=== PATIENT | female | born 1940 | race Two or more races ===

== ENCOUNTER 2017-09-22 21:16 | Inpatient (IN) | payer OTHER ==
[~2017-09-22] VITALS: Ht 165.1 cm; Wt 140.0 kg
[~2017-09-22 21:16] MED LIST: COMBIGAN EYE DRO5 ML; CRESTOR10 MG; HUMULIN R500 U/ML; LANTUS SOLOSTAR3 ML; METOPROLOL SUCC25 MG; SYNTHROID50 MCG; TIROSINT25 MCG; TRAVATAN Z5 ML; [UNRECOGNIZED DRUG - OTHER]
[2017-09-22] MEDS ORDERED: DIGOXIN0.125 MG/2 (21:31)
[2017-09-22] MEDS ORDERED: PLAVIX75 MG (21:31)
[2017-09-22] MEDS ORDERED: ECOTRIN81 MG (21:31)
[2017-09-22] MEDS ORDERED: HUMALOG100 UNIT/1 (21:32)
[2017-09-22] MEDS ORDERED: MONTELUKAST SOD10 MG (21:32)
[2017-09-22] MEDS ORDERED: BUDEO.25 (21:32)
[2017-09-22] MEDS ORDERED: NITROGLYCERIN1 EAC1 (21:32)
[2017-09-22] MEDS ORDERED: TRADJENTA5 MG (21:33)
[2017-09-22] MEDS ORDERED: IPRATROPIU0.2 MG/1 M (21:33)
[2017-09-22] MEDS ORDERED: NEURONTIN300 MG (21:33)
[2017-09-22] MEDS ORDERED: LEVAQUIN750 MG (21:33)
[2017-09-22] MEDS ORDERED: TESSALON PERLE100 M1 (21:33)
[2017-09-22] MEDS ORDERED: LANTUS SOL100 UNIT/1 (21:34)
[2017-10-05] MEDS ORDERED: AMLODIPINE BESY10 MG PO (14:37)
[2017-10-05] MEDS ORDERED: LEVOTHYROXINE50 MCG PO (14:37)
[2017-10-05] MEDS ORDERED: LOSARTAN POTASS50 MG PO (14:37)
[2017-10-05] MEDS ORDERED: ASA-EC81 MG PO (14:37)
[2017-10-05] MEDS ORDERED: ACID REDUCER20 MG PO (14:37)
[2017-10-05] MEDS ORDERED: CLOPIDOGREL BIS75 MG PO (14:37)
[2017-10-05] MEDS ORDERED: XOPENEX0.63 MG/3 IH (14:37)
[2017-10-05] MEDS ORDERED: Coreg 12.5MG TABLET PO (14:37)
[2017-10-05] MEDS ORDERED: MONTELUKAST SOD10 MG PO (14:37)
[2017-10-05] MEDS ORDERED: LANOXIN125 MCG PO (14:37)
[2017-10-05] MEDS ORDERED: LIPITOR40 MG PO (14:37)
[2017-10-05] MEDS ORDERED: TESSALON PERLE100 M1 PO (15:27)
[2017-10-05] MEDS ORDERED: TUSSIN DM CLEA118 ML PO (15:27)
== END 2017-10-05 17:17 | disposition home or self-care (01) | DRG 291 ==
LOC: ER 21:16 → MEDJ 09-23 18:06 → SURH 09-23 18:06 → MEDI 09-23 19:31 → SURH 10-05 17:17
PROC: 3E0F7GC Introduction of Other Therapeutic Substance into Respiratory Tract, Via Natural or Artificial Opening (ICD-10-PCS; 2017-09-23)
PROC: B44HZZZ Ultrasonography of Bilateral Lower Extremity Arteries (ICD-10-PCS; principal; 2017-09-24)
PROC: 02H633Z Insertion of Infusion Device into Right Atrium, Percutaneous Approach (ICD-10-PCS; 2017-09-27)
PROC: 4A033R1 Measurement of Arterial Saturation, Peripheral, Percutaneous Approach (ICD-10-PCS; 2017-09-27)
PROC: 4A12X4Z Monitoring of Cardiac Electrical Activity, External Approach (ICD-10-PCS; 2017-09-27)
PROC: B246ZZZ Ultrasonography of Right and Left Heart (ICD-10-PCS; 2017-10-03)
DX: I11.0 Hypertensive heart disease with heart failure (principal); J18.9 Pneumonia, unspecified organism; B37.41 Candidal cystitis and urethritis; E87.1 Hypo-osmolality and hyponatremia; N17.8 Other acute kidney failure; J44.1 Chronic obstructive pulmonary disease with (acute) exacerbation; L97.528 Non-pressure chronic ulcer of other part of left foot with other specified severity; L97.518 Non-pressure chronic ulcer of other part of right foot with other specified severity; B37.0 Candidal stomatitis; I50.33 Acute on chronic diastolic (congestive) heart failure; E11.65 Type 2 diabetes mellitus with hyperglycemia; E86.0 Dehydration; I25.10 Atherosclerotic heart disease of native coronary artery without angina pectoris; I70.245 Atherosclerosis of native arteries of left leg with ulceration of other part of foot; I70.235 Atherosclerosis of native arteries of right leg with ulceration of other part of foot; B35.3 Tinea pedis; E03.8 Other specified hypothyroidism; Z95.1 Presence of aortocoronary bypass graft; Z95.2 Presence of prosthetic heart valve; I27.29 Other secondary pulmonary hypertension; B37.2 Candidiasis of skin and nail

== ENCOUNTER 2017-10-13 09:55 | Inpatient (IN) | payer OTHER ==
[~2017-10-13] VITALS: Ht 160 cm; Wt 64.4 kg
[~2017-10-13 09:55] MED LIST changes: +ACID REDUCER20 MG PO; +AMLODIPINE BESY10 MG PO; +ASA-EC81 MG PO; +BUDEO.25; +CLOPIDOGREL BIS75 MG PO; +Coreg 12.5MG TABLET PO; +DIGOXIN0.125 MG/2; +ECOTRIN81 MG; +HUMALOG100 UNIT/1; +IPRATROPIU0.2 MG/1 M; +LANOXIN125 MCG PO; +LANTUS SOL100 UNIT/1; +LEVAQUIN750 MG; +LEVOTHYROXINE50 MCG PO; +LIPITOR40 MG PO; +LOSARTAN POTASS50 MG PO; +MONTELUKAST SOD10 MG; +MONTELUKAST SOD10 MG PO; +NEURONTIN300 MG; +NITROGLYCERIN1 EAC1; +PLAVIX75 MG; +TESSALON PERLE100 M1; +TESSALON PERLE100 M1 PO; +TRADJENTA5 MG; +TUSSIN DM CLEA118 ML PO; +XOPENEX0.63 MG/3 IH
[2017-10-13] MEDS ORDERED: COREG CR10 MG (11:17)
[2017-10-20] MEDS ORDERED: TOPROL XL50 M1 PO (15:43)
[2017-10-20] MEDS ORDERED: LOSARTAN POTASS50 MG PO (15:43)
[2017-10-20] MEDS ORDERED: CLOPIDOGREL BIS75 MG PO (15:43)
[2017-10-20] MEDS ORDERED: LEVOTHYROXINE50 MCG PO (15:43)
[2017-10-20] MEDS ORDERED: XOPENEX0.63 MG/3 IH (15:43)
[2017-10-20] MEDS ORDERED: LIPITOR40 MG PO (15:43)
[2017-10-20] MEDS ORDERED: LANOXIN125 MCG PO (15:43)
== END 2017-10-20 18:15 | disposition home health service (06) | DRG 194 ==
LOC: ER 09:55 → MEDI 19:12
PROC: 3E0F7GC Introduction of Other Therapeutic Substance into Respiratory Tract, Via Natural or Artificial Opening (ICD-10-PCS; principal; 2017-10-13)
PROC: 4A033R1 Measurement of Arterial Saturation, Peripheral, Percutaneous Approach (ICD-10-PCS; 2017-10-13)
PROC: BW24ZZZ Computerized Tomography (CT Scan) of Chest and Abdomen (ICD-10-PCS; 2017-10-13)
PROC: CB121ZZ Planar Nuclear Medicine Imaging of Lungs and Bronchi using Technetium 99m (Tc-99m) (ICD-10-PCS; 2017-10-14)
DX: J18.8 Other pneumonia, unspecified organism (principal); N17.8 Other acute kidney failure; I50.30 Unspecified diastolic (congestive) heart failure; J44.1 Chronic obstructive pulmonary disease with (acute) exacerbation; J44.0 Chronic obstructive pulmonary disease with (acute) lower respiratory infection; I25.810 Atherosclerosis of coronary artery bypass graft(s) without angina pectoris; B37.0 Candidal stomatitis; I27.29 Other secondary pulmonary hypertension; R13.19 Other dysphagia; I11.0 Hypertensive heart disease with heart failure; Z95.2 Presence of prosthetic heart valve; J20.9 Acute bronchitis, unspecified; E03.8 Other specified hypothyroidism; Z95.1 Presence of aortocoronary bypass graft; E86.0 Dehydration; E11.65 Type 2 diabetes mellitus with hyperglycemia; Z79.4 Long term (current) use of insulin; B96.3 Hemophilus influenzae [H. influenzae] as the cause of diseases classified elsewhere

== ENCOUNTER 2019-09-28 14:56 | Inpatient (IN) | payer OTHER ==
[~2019-09-28] VITALS: Ht 162.6 cm; Wt 68.0 kg
[~2019-09-28 14:56] MED LIST changes: +COREG CR10 MG; +TOPROL XL50 M1 PO
[2019-09-28] MEDS ORDERED: LASIX20 MG (15:09)
[2019-09-28] MEDS ORDERED: PLAVIX75 MG (15:09)
[2019-09-28] MEDS ORDERED: ASPIR 8181 MG (15:09)
[2019-09-28] MEDS ORDERED: SYNTHROID50 MCG (15:10)
[2019-09-28] MEDS ORDERED: VITAMIN D31 ML (15:10)
[2019-09-28] MEDS ORDERED: ISOSORBIDE DINI30 MG (15:10)
[2019-09-28] MEDS ORDERED: BUDESONIDE0.5 MG/2 M (15:11)
[2019-09-28] MEDS ORDERED: MONTELUKAST SODI4 M1 PO (15:11)
[2019-09-28] MEDS ORDERED: GABAPENTIN300 M2 (15:11)
[2019-09-28] MEDS ORDERED: LIPITOR40 M1 (15:11)
[2019-09-28] MEDS ORDERED: AZITHROMYCIN250 MG (15:12)
[2019-09-28] MEDS ORDERED: HUMALOG100 UNIT/2 (15:12)
[2019-09-28] MEDS ORDERED: IPRATROPIU0.2 MG/1 M (15:12)
[2019-09-28] MEDS ORDERED: DERMACINRX THE135 GM (15:13)
[2019-09-28] MEDS ORDERED: LANTUS SOL100 UNIT/1 (15:13)
[2019-10-07] MEDS ORDERED: VENTOLIN HFA18 GM IH (14:10)
[2019-10-07] MEDS ORDERED: LISINOPRIL20 MG PO (14:10)
[2019-10-07] MEDS ORDERED: FLONASE16 GM NASAL (14:10)
[2019-10-07] MEDS ORDERED: LEVOTHYROXINE50 MCG PO (14:10)
[2019-10-07] MEDS ORDERED: FUROSEMIDE20 MG PO (14:10)
[2019-10-07] MEDS ORDERED: Lantus 1000 UNITS/10 SUBCUTANEO (14:10)
[2019-10-07] MEDS ORDERED: MUCINEX600 MG PO (14:10)
[2019-10-07] MEDS ORDERED: LIPITOR40 MG PO (14:10)
[2019-10-07] MEDS ORDERED: FAMOTIDINE20 MG PO (14:10)
[2019-10-07] MEDS ORDERED: CLOPIDOGREL BIS75 MG PO (14:10)
[2019-10-07] MEDS ORDERED: LORATADINE10 MG PO (14:10)
[2019-10-07] MEDS ORDERED: ISOSORBIDE DINI30 MG PO (14:10)
[2019-10-07] MEDS ORDERED: BENZONATATE100 MG PO (14:10)
== END 2019-10-07 17:15 | DRG 177 ==
LOC: ER 14:56 → SURH 22:36
PROVIDERS: ADMIT Internal Medicine
PROC: 4A033R1 Measurement of Arterial Saturation, Peripheral, Percutaneous Approach (ICD-10-PCS; principal; 2019-09-28)
PROC: 3E0F7GC Introduction of Other Therapeutic Substance into Respiratory Tract, Via Natural or Artificial Opening (ICD-10-PCS; 2019-09-28)
PROC: 8E0ZXY6 Isolation (ICD-10-PCS; 2019-09-28)
PROC: B246ZZZ Ultrasonography of Right and Left Heart (ICD-10-PCS; 2019-10-01)
DX: B37.1 Pulmonary candidiasis (principal); A41.1 Sepsis due to other specified staphylococcus; I50.21 Acute systolic (congestive) heart failure; J10.08 Influenza due to other identified influenza virus with other specified pneumonia; J44.1 Chronic obstructive pulmonary disease with (acute) exacerbation; N39.0 Urinary tract infection, site not specified; I25.810 Atherosclerosis of coronary artery bypass graft(s) without angina pectoris; J45.41 Moderate persistent asthma with (acute) exacerbation; J20.9 Acute bronchitis, unspecified; I11.0 Hypertensive heart disease with heart failure; I08.2 Rheumatic disorders of both aortic and tricuspid valves; B96.29 Other Escherichia coli [E. coli] as the cause of diseases classified elsewhere; B95.2 Enterococcus as the cause of diseases classified elsewhere; I70.79 Other atherosclerosis of other type of bypass graft(s) of the extremities; R31.29 Other microscopic hematuria; E03.8 Other specified hypothyroidism; Z74.01 Bed confinement status

== ENCOUNTER 2020-03-09 16:15 | Inpatient (IN) | payer OTHER ==
[~2020-03-09] VITALS: Ht 165.1 cm; Wt 63.5 kg
[~2020-03-09 16:15] MED LIST changes: +ASPIR 8181 MG; +AZITHROMYCIN250 MG; +BENZONATATE100 MG PO; +BUDESONIDE0.5 MG/2 M; +DERMACINRX THE135 GM; +FAMOTIDINE20 MG PO; +FLONASE16 GM NASAL; +FUROSEMIDE20 MG PO; +GABAPENTIN300 M2; +HUMALOG100 UNIT/2; +ISOSORBIDE DINI30 MG; +ISOSORBIDE DINI30 MG PO; +LASIX20 MG; +LIPITOR40 M1; +LISINOPRIL20 MG PO; +LORATADINE10 MG PO; +Lantus 1000 UNITS/10 SUBCUTANEO; +MONTELUKAST SODI4 M1 PO; +MUCINEX600 MG PO; +VENTOLIN HFA18 GM IH; +VITAMIN D31 ML
[2020-03-09] MEDS ORDERED: ASPIR 8181 MG PO (17:19)
[2020-03-09] MEDS ORDERED: PLAVIX75 MG PO (17:19)
[2020-03-09] MEDS ORDERED: COD LIVER OIL1 EACH PO (17:20)
[2020-03-09] MEDS ORDERED: ATORVASTATIN CA40 MG PO (17:20)
[2020-03-09] MEDS ORDERED: ISOSORBIDE DINI30 MG PO (17:20)
[2020-03-09] MEDS ORDERED: LASIX20 MG PO (17:20)
[2020-03-09] MEDS ORDERED: HORIZANT300 MG PO (17:21)
[2020-03-09] MEDS ORDERED: MONTELUKAST SODI4 M1 PO (17:21)
[2020-03-09] MEDS ORDERED: IPRATROPIU0.2 MG/1 M IH (17:22)
[2020-03-09] MEDS ORDERED: LANTUS SOL100 UNIT/1 SUBCUTANEO (17:23)
[2020-03-09] MEDS ORDERED: HUMALOG100 UNIT/2 SUBCUTANEO (17:23)
== END 2020-03-20 19:19 | disposition home or self-care (01) | DRG 292 ==
LOC: ER 16:15 → SURG 22:21 → SURH 22:21 → SURG 03-10 02:02 → SURH 03-10 14:28
PROVIDERS: ADMIT Internal Medicine; ATTEND Internal Medicine
PROC: 4A033R1 Measurement of Arterial Saturation, Peripheral, Percutaneous Approach (ICD-10-PCS; 2020-03-09)
PROC: B24BZZZ Ultrasonography of Heart with Aorta (ICD-10-PCS; principal; 2020-03-10)
PROC: 3E0F7GC Introduction of Other Therapeutic Substance into Respiratory Tract, Via Natural or Artificial Opening (ICD-10-PCS; 2020-03-10)
PROC: 02HV33Z Insertion of Infusion Device into Superior Vena Cava, Percutaneous Approach (ICD-10-PCS; 2020-03-10)
PROC: 4A12X4Z Monitoring of Cardiac Electrical Activity, External Approach (ICD-10-PCS; 2020-03-10)
DX: I11.0 Hypertensive heart disease with heart failure (principal); J44.1 Chronic obstructive pulmonary disease with (acute) exacerbation; B37.0 Candidal stomatitis; I48.20 Chronic atrial fibrillation, unspecified; E87.1 Hypo-osmolality and hyponatremia; N17.9 Acute kidney failure, unspecified; I50.9 Heart failure, unspecified; E03.9 Hypothyroidism, unspecified; Z95.1 Presence of aortocoronary bypass graft; E11.621 Type 2 diabetes mellitus with foot ulcer; Z79.4 Long term (current) use of insulin; L97.519 Non-pressure chronic ulcer of other part of right foot with unspecified severity; R09.02 Hypoxemia; L03.031 Cellulitis of right toe; Z95.4 Presence of other heart-valve replacement; B35.3 Tinea pedis; E86.0 Dehydration; I27.20 Pulmonary hypertension, unspecified; Z79.01 Long term (current) use of anticoagulants; Z74.01 Bed confinement status

== ENCOUNTER 2020-06-06 11:49 | Inpatient (IN) | payer OTHER ==
[~2020-06-06] VITALS: Ht 165.1 cm; Wt 63.5 kg
[~2020-06-06 11:49] MED LIST changes: +ASPIR 8181 MG PO; +ATORVASTATIN CA40 MG PO; +COD LIVER OIL1 EACH PO; +HORIZANT300 MG PO; +HUMALOG100 UNIT/2 SUBCUTANEO; +IPRATROPIU0.2 MG/1 M IH; +LANTUS SOL100 UNIT/1 SUBCUTANEO; +LASIX20 MG PO; +PLAVIX75 MG PO
== END 2020-06-19 16:09 | disposition home or self-care (01) | DRG 602 ==
LOC: ER 11:49 → SEC-K 17:44 → MEDI 22:49 → SURG 06-08 09:57 → MEDJ 06-13 05:41
PROVIDERS: ADMIT Internal Medicine; ATTEND Internal Medicine
PROC: 3E0F7SF Introduction of Other Gas into Respiratory Tract, Via Natural or Artificial Opening (ICD-10-PCS; 2020-06-06)
PROC: 4A033R1 Measurement of Arterial Saturation, Peripheral, Percutaneous Approach (ICD-10-PCS; 2020-06-06)
PROC: 4A12X4Z Monitoring of Cardiac Electrical Activity, External Approach (ICD-10-PCS; principal; 2020-06-07)
PROC: 3E0F7GC Introduction of Other Therapeutic Substance into Respiratory Tract, Via Natural or Artificial Opening (ICD-10-PCS; 2020-06-09)
PROC: B24BZZZ Ultrasonography of Heart with Aorta (ICD-10-PCS; 2020-06-11)
PROC: CB2YYZZ Tomographic (Tomo) Nuclear Medicine Imaging of Respiratory System using Other Radionuclide (ICD-10-PCS; 2020-06-12)
PROC: 8E0ZXY6 Isolation (ICD-10-PCS; 2020-06-13)
DX: L03.115 Cellulitis of right lower limb (principal); I50.23 Acute on chronic systolic (congestive) heart failure; I21.A1 Myocardial infarction type 2; E11.52 Type 2 diabetes mellitus with diabetic peripheral angiopathy with gangrene; I13.0 Hypertensive heart and chronic kidney disease with heart failure and stage 1 through stage 4 chronic kidney disease, or unspecified chronic kidney disease; I48.20 Chronic atrial fibrillation, unspecified; I96 Gangrene, not elsewhere classified; R04.2 Hemoptysis; E11.621 Type 2 diabetes mellitus with foot ulcer; E11.22 Type 2 diabetes mellitus with diabetic chronic kidney disease; N18.9 Chronic kidney disease, unspecified; I25.10 Atherosclerotic heart disease of native coronary artery without angina pectoris; Z95.1 Presence of aortocoronary bypass graft; J44.9 Chronic obstructive pulmonary disease, unspecified; Z79.01 Long term (current) use of anticoagulants; E03.9 Hypothyroidism, unspecified; R09.02 Hypoxemia; E11.65 Type 2 diabetes mellitus with hyperglycemia; I27.22 Pulmonary hypertension due to left heart disease; E11.42 Type 2 diabetes mellitus with diabetic polyneuropathy; L97.519 Non-pressure chronic ulcer of other part of right foot with unspecified severity; Z03.818 Encounter for observation for suspected exposure to other biological agents ruled out; Z95.2 Presence of prosthetic heart valve; Z89.422 Acquired absence of other left toe(s); D63.8 Anemia in other chronic diseases classified elsewhere

== ENCOUNTER 2020-06-28 11:33 | Inpatient (IN) | payer OTHER ==
[~2020-06-28] VITALS: Ht 182.9 cm; Wt 5.0 kg
== END 2020-06-30 23:16 | disposition expired | DRG 177 ==
LOC: ER 11:33 → ICU-2 14:35 → EDBD 14:35 → ICU-2 06-30 23:16
PROVIDERS: ADMIT Internal Medicine; ATTEND Internal Medicine
PROC: 8E0ZXY6 Isolation (ICD-10-PCS; principal; 2020-06-28)
PROC: 4A033R1 Measurement of Arterial Saturation, Peripheral, Percutaneous Approach (ICD-10-PCS; 2020-06-28)
PROC: 3E0F7GC Introduction of Other Therapeutic Substance into Respiratory Tract, Via Natural or Artificial Opening (ICD-10-PCS; 2020-06-28)
DX: U07.1 COVID-19 (principal); I50.33 Acute on chronic diastolic (congestive) heart failure; I48.20 Chronic atrial fibrillation, unspecified; E87.2 Acidosis; J44.1 Chronic obstructive pulmonary disease with (acute) exacerbation; I11.0 Hypertensive heart disease with heart failure; Z66 Do not resuscitate; Z95.1 Presence of aortocoronary bypass graft; Z95.2 Presence of prosthetic heart valve; Z79.01 Long term (current) use of anticoagulants; K59.09 Other constipation; E03.8 Other specified hypothyroidism; R09.02 Hypoxemia; I27.22 Pulmonary hypertension due to left heart disease